=== PATIENT | male | born 1955 | race Caucasian/White ===

== ENCOUNTER 2018-10-13 13:36 | Inpatient (IN) | payer MEDICARE, MEDICAID ==
[~2018-10-13] VITALS: Ht 170.2 cm; Wt 60.8 kg
[2018-10-13 15:38] LABS: CHLORIDE 103 mEq/L (98-107)
[2018-10-13 15:39] LABS: BASOPHILS % 0.8 % (0.0-2.0); EOSINOPHILS % 1.7 % (0.0-5.0); HEMATOCRIT. 24.6 % (42.0-52.0); HEMOGLOBIN. 8.1 g/dL (14.0-18.0); LYMPHOCYTES % 17.2 % (20.0-50.0); MEAN CORPUSCULAR HEMOGLOBIN 27.3 pg (28.0-32.0); MEAN CORPUSCULAR VOLUME 82.6 fL (80.0-94.0); MEAN PLATELET VOLUME 10.9 fl (7.4-10.4); MONOCYTES % 7.9 % (2.0-8.0); NEUTROPHILS % 72.4 % (40.0-76.0); PLATELET 162 x1000/uL (130-400); RED BLOOD CELL COUNT 2.98 mill/uL (4.7-6.1); RED CELL DISTRIBUTION WIDTH 17.8 % (11.6-14.6)
[2018-10-13] MEDS ORDERED: CLONIDINE 0.2MG TABLET PO ONE (17:15)
[2018-10-13] MEDS ORDERED: CLONIDINE 0.1MG TABLET PO ONE (18:15)
[2018-10-13] MEDS ORDERED: HYDROCODONE/APAP 7.5/325MG 1 TAB TABLET PO PRN (22:30)
[2018-10-13] MEDS ORDERED: MORPHINE SULFATE 4 MG/ML CPJ (NOT FOR IM USE) IV PRN (22:30)
[2018-10-13] MEDS ORDERED: ONDANSETRON HCL 4MG/2ML INJ IV PRN (22:30)
[2018-10-13 23:00] VITALS: BP 174/77
[2018-10-14] MEDS ORDERED: CALC668T MT (02:43)
[2018-10-14] MEDS ORDERED: NORCO PO (02:43)
[2018-10-14] MEDS ORDERED: BENA40TA9 PO (02:43)
[2018-10-14] MEDS ORDERED: REN800 MT (02:43)
[2018-10-14] MEDS ORDERED: METO-539 PO (02:43)
[2018-10-14] MEDS ORDERED: BUSP5TAB3 PO (02:43)
[2018-10-14] MEDS ORDERED: CLON0.1T PO (02:43)
[2018-10-14] MEDS ORDERED: LANTUSUD SUBCUT (02:43)
[2018-10-14] MEDS ORDERED: ASPI-986 PO (02:43)
[2018-10-14] MEDS ORDERED: HYDR-4135 PO (02:43)
[2018-10-14] MEDS ORDERED: VALS160T2 PO (02:43)
[2018-10-14 07:59] VITALS: BP 118/32
[2018-10-14] MEDS: ENOXAPARIN 30MG/0.3ML SYR SUBCUT SCH (09:09)
[2018-10-14] MEDS: ASPIRIN 81MG EC TABLET PO SCH (09:09)
[2018-10-14] MEDS: FOLIC ACID 1MG TABLET PO SCH (09:10)
[2018-10-14 12:00] VITALS: BP_SYST 109; BP_SYST 116; BP_DIAS 48; BP_DIAS 57
[2018-10-14 16:00] VITALS: BP 130/36
[2018-10-14] MEDS: BLOOD SUGAR DIAGNOSTIC STRIP TEST SCH ×2 (18:18→21:30)
[2018-10-14 20:00] VITALS: BP 140/47
[2018-10-15] VITALS: BP 162/72
[2018-10-15 04:00] VITALS: BP 136/65
[2018-10-15] MEDS: BLOOD SUGAR DIAGNOSTIC STRIP TEST SCH ×4 (06:41→21:36)
[2018-10-15 06:48] LABS: BASOPHILS % 0.7 % (0.0-2.0); EOSINOPHILS % 0.5 % (0.0-5.0); HEMATOCRIT. 24.4 % (42.0-52.0); HEMOGLOBIN. 8.1 g/dL (14.0-18.0); LYMPHOCYTES % 12.2 % (20.0-50.0); MEAN CORPUSCULAR HEMOGLOBIN 27.5 pg (28.0-32.0); MEAN CORPUSCULAR VOLUME 82.8 fL (80.0-94.0); MEAN PLATELET VOLUME 10.3 fl (7.4-10.4); MONOCYTES % 7.2 % (2.0-8.0); NEUTROPHILS % 79.4 % (40.0-76.0); PLATELET 216 x1000/uL (130-400); RED BLOOD CELL COUNT 2.95 mill/uL (4.7-6.1); RED CELL DISTRIBUTION WIDTH 17.6 % (11.6-14.6)
[2018-10-15 08:00] VITALS: BP 153/67
[2018-10-15] MEDS: ASPIRIN 81MG EC TABLET PO SCH (08:36)
[2018-10-15] MEDS: FOLIC ACID 1MG TABLET PO SCH (08:37)
[2018-10-15] MEDS: ENOXAPARIN 30MG/0.3ML SYR SUBCUT SCH (09:52)
[2018-10-15 10:24] LABS: T4 FREE 0.97 ng/dL (0.76-1.46)
[2018-10-15 10:41] LABS: FOLIC ACID (FOLATE) SERUM >20 ng/mL ng/mL (>5.38)
[2018-10-15 10:53] LABS: VITAMIN B12 SERUM 1821 pg/mL (211-911)
[2018-10-15 12:00] VITALS: BP 129/64
[2018-10-15 16:00] VITALS: BP 129/67
[2018-10-15] MEDS ORDERED: CLONIDINE 0.1MG TABLET PO PRN (17:30)
[2018-10-15 20:00] VITALS: BP 113/28
[2018-10-15] MEDS: NYSTATIN 100,000 UNITS/GM CREAM 15GM TOP SCH (21:00)
[2018-10-15] MEDS: INSULIN GLARGINE UD 100 UNITS/ML SYR SUBCUT SCH (21:00)
[2018-10-16] VITALS: BP 132/65
[2018-10-16 04:00] VITALS: BP 111/34
[2018-10-16] MEDS: BLOOD SUGAR DIAGNOSTIC STRIP TEST SCH ×3 (06:45→20:43)
[2018-10-16 08:00] VITALS: BP 155/62
[2018-10-16] MEDS: ASPIRIN 81MG EC TABLET PO SCH (09:55)
[2018-10-16] MEDS: FOLIC ACID 1MG TABLET PO SCH (09:55)
[2018-10-16] MEDS: NYSTATIN 100,000 UNITS/GM CREAM 15GM TOP SCH ×2 (09:56→21:04)
[2018-10-16] MEDS: ENOXAPARIN 30MG/0.3ML SYR SUBCUT SCH (09:56)
[2018-10-16 12:00] VITALS: BP 141/74
[2018-10-16 16:00] VITALS: BP 163/76
[2018-10-16 20:00] VITALS: BP 147/99
[2018-10-16] MEDS: INSULIN GLARGINE UD 100 UNITS/ML SYR SUBCUT SCH (21:00)
[2018-10-17] VITALS (11 sets, daily range): BP systolic 97–189; BP diastolic 12–94
[2018-10-17] MEDS: BLOOD SUGAR DIAGNOSTIC STRIP TEST SCH ×4 (06:36→21:00)
[2018-10-17 07:40] LABS: BASOPHILS % 1.1 % (0.0-2.0); EOSINOPHILS % 0.8 % (0.0-5.0); HEMATOCRIT. 22.4 % (42.0-52.0); HEMOGLOBIN. 7.3 g/dL (14.0-18.0); LYMPHOCYTES % 13.2 % (20.0-50.0); MEAN CORPUSCULAR HEMOGLOBIN 28.1 pg (28.0-32.0); MEAN CORPUSCULAR VOLUME 85.8 fL (80.0-94.0); MEAN PLATELET VOLUME 9.8 fl (7.4-10.4); MONOCYTES % 7.3 % (2.0-8.0); NEUTROPHILS % 77.6 % (40.0-76.0); PLATELET 250 x1000/uL (130-400); RED BLOOD CELL COUNT 2.61 mill/uL (4.7-6.1); RED CELL DISTRIBUTION WIDTH 17.7 % (11.6-14.6)
[2018-10-17] MEDS: FOLIC ACID 1MG TABLET PO SCH (08:53)
[2018-10-17] MEDS: ASPIRIN 81MG EC TABLET PO SCH (08:53)
[2018-10-17] MEDS: ENOXAPARIN 30MG/0.3ML SYR SUBCUT SCH (08:54)
[2018-10-17] MEDS ORDERED: LOPERAMIDE HCL 2MG CAPSULE PO NR (12:00)
[2018-10-17] MEDS: NYSTATIN 100,000 UNITS/GM CREAM 15GM TOP SCH ×2 (13:54→21:30)
[2018-10-17] MEDS: INSULIN GLARGINE UD 100 UNITS/ML SYR SUBCUT SCH (21:00)
[2018-10-17] MEDS: EPOETIN ALFA 10000UNITS/ML VIAL SUBCUT SCH (22:03)
[2018-10-18 04:04] VITALS: BP 148/45
[2018-10-18] MEDS: BLOOD SUGAR DIAGNOSTIC STRIP TEST SCH ×4 (06:16→20:43)
[2018-10-18 06:41] LABS: INR 1.1; PROTHROMBIN TIME 11.5 sec (9.1-11.1)
[2018-10-18 06:57] LABS: BASOPHILS % 0.8 % (0.0-2.0); EOSINOPHILS % 1.1 % (0.0-5.0); HEMATOCRIT. 24.9 % (42.0-52.0); HEMOGLOBIN. 8.1 g/dL (14.0-18.0); LYMPHOCYTES % 11.7 % (20.0-50.0); MEAN PLATELET VOLUME 9.9 fl (7.4-10.4); MONOCYTES % 8.2 % (2.0-8.0); NEUTROPHILS % 78.2 % (40.0-76.0); PLATELET 265 x1000/uL (130-400); RED BLOOD CELL COUNT 2.89 mill/uL (4.7-6.1); RED CELL DISTRIBUTION WIDTH 17.4 % (11.6-14.6)
[2018-10-18] MEDS: ASPIRIN 81MG EC TABLET PO SCH (09:01)
[2018-10-18] MEDS: FOLIC ACID 1MG TABLET PO SCH (09:01)
[2018-10-18] MEDS: ENOXAPARIN 30MG/0.3ML SYR SUBCUT SCH (09:07)
[2018-10-18] MEDS: NYSTATIN 100,000 UNITS/GM CREAM 15GM TOP SCH ×2 (09:07→21:13)
[2018-10-18 12:15] VITALS: BP 100/38
[2018-10-18] MEDS ORDERED: LOPERAMIDE HCL 2MG CAPSULE PO SCH (13:30)
[2018-10-18 17:07] VITALS: BP 106/40
[2018-10-18 20:00] VITALS: BP 160/46
[2018-10-18] MEDS: INSULIN GLARGINE UD 100 UNITS/ML SYR SUBCUT SCH (21:14)
[2018-10-19] VITALS: BP 150/49
[2018-10-19 07:32] LABS: BASOPHILS % 1.4 % (0.0-2.0); EOSINOPHILS % 1.1 % (0.0-5.0); HEMATOCRIT. 26.2 % (42.0-52.0); HEMOGLOBIN. 8.5 g/dL (14.0-18.0); LYMPHOCYTES % 19.2 % (20.0-50.0); MEAN CORPUSCULAR HEMOGLOBIN 28.3 pg (28.0-32.0); MONOCYTES % 9.5 % (2.0-8.0); NEUTROPHILS % 68.8 % (40.0-76.0); PLATELET 249 x1000/uL (130-400); RED BLOOD CELL COUNT 3.02 mill/uL (4.7-6.1); RED CELL DISTRIBUTION WIDTH 18.4 % (11.6-14.6)
[2018-10-19] MEDS: BLOOD SUGAR DIAGNOSTIC STRIP TEST SCH ×4 (07:34→21:31)
[2018-10-19 08:00] VITALS: BP 137/72
[2018-10-19] MEDS: ASPIRIN 81MG EC TABLET PO SCH (10:49)
[2018-10-19] MEDS: FOLIC ACID 1MG TABLET PO SCH (10:49)
[2018-10-19] MEDS: NYSTATIN 100,000 UNITS/GM CREAM 15GM TOP SCH ×3 (10:50→21:29)
[2018-10-19] MEDS: ENOXAPARIN 30MG/0.3ML SYR SUBCUT SCH (10:50)
[2018-10-19 12:00] VITALS: BP 142/61
[2018-10-19 16:00] VITALS: BP 155/74
[2018-10-19] MEDS: INSULIN GLARGINE UD 100 UNITS/ML SYR SUBCUT SCH ×2 (21:31→21:39)
[2018-10-19 22:30] VITALS: BP 130/70
[2018-10-20] VITALS: BP 146/76
[2018-10-20 04:00] VITALS: BP 224/46
[2018-10-20] MEDS: BLOOD SUGAR DIAGNOSTIC STRIP TEST SCH ×4 (05:25→21:00)
[2018-10-20 08:00] VITALS: BP 150/52
[2018-10-20] MEDS: FOLIC ACID 1MG TABLET PO SCH (08:25)
[2018-10-20] MEDS: ASPIRIN 81MG EC TABLET PO SCH (08:25)
[2018-10-20] MEDS: ENOXAPARIN 30MG/0.3ML SYR SUBCUT SCH (08:25)
[2018-10-20] MEDS: NYSTATIN 100,000 UNITS/GM CREAM 15GM TOP SCH ×2 (08:29→21:00)
[2018-10-20 12:00] VITALS: BP 152/39
[2018-10-20 14:01] LABS: BASOPHILS % 2.1 % (0.0-2.0); EOSINOPHILS % 1.7 % (0.0-5.0); HEMATOCRIT. 26.6 % (42.0-52.0); HEMOGLOBIN. 8.6 g/dL (14.0-18.0); LYMPHOCYTES % 21.4 % (20.0-50.0); MEAN CORPUSCULAR HEMOGLOBIN 28.7 pg (28.0-32.0); MEAN CORPUSCULAR VOLUME 88.1 fL (80.0-94.0); MEAN PLATELET VOLUME 9.5 fl (7.4-10.4); MONOCYTES % 8.8 % (2.0-8.0); PLATELET 216 x1000/uL (130-400); RED BLOOD CELL COUNT 3.01 mill/uL (4.7-6.1); RED CELL DISTRIBUTION WIDTH 20.2 % (11.6-14.6)
[2018-10-20] MEDS: EPOETIN ALFA 10000UNITS/ML VIAL SUBCUT SCH (21:00)
[2018-10-20] MEDS: INSULIN GLARGINE UD 100 UNITS/ML SYR SUBCUT SCH (22:00)
[2018-10-20 23:53] VITALS: BP 115/53
[2018-10-21] MEDS: BLOOD SUGAR DIAGNOSTIC STRIP TEST SCH ×2 (07:09→12:07)
[2018-10-21 07:43] LABS: BASOPHILS % 1.4 % (0.0-2.0); EOSINOPHILS % 0.9 % (0.0-5.0); HEMATOCRIT. 23.3 % (42.0-52.0); HEMOGLOBIN. 7.6 g/dL (14.0-18.0); MEAN CORPUSCULAR HEMOGLOBIN 28.6 pg (28.0-32.0); MEAN CORPUSCULAR VOLUME 87.9 fL (80.0-94.0); MEAN PLATELET VOLUME 9.4 fl (7.4-10.4); MONOCYTES % 7.9 % (2.0-8.0); NEUTROPHILS % 73.8 % (40.0-76.0); PLATELET 206 x1000/uL (130-400); RED BLOOD CELL COUNT 2.65 mill/uL (4.7-6.1); RED CELL DISTRIBUTION WIDTH 20.4 % (11.6-14.6)
[2018-10-21] MEDS: FOLIC ACID 1MG TABLET PO SCH (08:08)
[2018-10-21] MEDS: ASPIRIN 81MG EC TABLET PO SCH (08:08)
[2018-10-21] MEDS: ENOXAPARIN 30MG/0.3ML SYR SUBCUT SCH (08:10)
[2018-10-21] MEDS: NYSTATIN 100,000 UNITS/GM CREAM 15GM TOP SCH (08:10)
== END 2018-10-21 14:15 | DRG 91 ==
LOC: ER 13:36 → 6WST 16:02 → EDBEDREQ 16:09 → ENRESERV 21:11
PROVIDERS: ADMIT Internal Medicine Nephrology; ATTEND Internal Medicine Nephrology
PROC: 5A1D70Z Performance of Urinary Filtration, Intermittent, Less than 6 Hours Per Day (ICD-10-PCS; 2018-10-15)
PROC: 4A00X4Z Measurement of Central Nervous Electrical Activity, External Approach (ICD-10-PCS; principal; 2018-10-16)
PROC: 30233N1 Transfusion of Nonautologous Red Blood Cells into Peripheral Vein, Percutaneous Approach (ICD-10-PCS; 2018-10-17)
PROC: 5A1D70Z Performance of Urinary Filtration, Intermittent, Less than 6 Hours Per Day (ICD-10-PCS; 2018-10-17)
PROC: 5A1D70Z Performance of Urinary Filtration, Intermittent, Less than 6 Hours Per Day (ICD-10-PCS; 2018-10-20)
DX: G92 Toxic encephalopathy (principal); N18.6 End stage renal disease; E43 Unspecified severe protein-calorie malnutrition; I12.0 Hypertensive chronic kidney disease with stage 5 chronic kidney disease or end stage renal disease; E87.70 Fluid overload, unspecified; M54.5 Low back pain; E03.9 Hypothyroidism, unspecified; E11.22 Type 2 diabetes mellitus with diabetic chronic kidney disease; G89.29 Other chronic pain; F03.90 Unspecified dementia, unspecified severity, without behavioral disturbance, psychotic disturbance, mood disturbance, and anxiety; K21.9 Gastro-esophageal reflux disease without esophagitis; M85.80 Other specified disorders of bone density and structure, unspecified site; R13.10 Dysphagia, unspecified; E05.90 Thyrotoxicosis, unspecified without thyrotoxic crisis or storm; Z96.653 Presence of artificial knee joint, bilateral; R26.9 Unspecified abnormalities of gait and mobility; E78.5 Hyperlipidemia, unspecified; D63.8 Anemia in other chronic diseases classified elsewhere; E11.319 Type 2 diabetes mellitus with unspecified diabetic retinopathy without macular edema; H54.7 Unspecified visual loss; Z86.73 Personal history of transient ischemic attack (TIA), and cerebral infarction without residual deficits; Z86.79 Personal history of other diseases of the circulatory system; Z91.19 Patient's noncompliance with other medical treatment and regimen; Z68.21 Body mass index [BMI] 21.0-21.9, adult; Z88.0 Allergy status to penicillin; Z99.2 Dependence on renal dialysis
CPT/HCPCS: 36415; 36430; 70551; 71045; 73502; 73560; 80048; 82140; 82270; 82607; 82746; 82962; 83036; 83520; 83880; 84134; 84439; 84443; 84481; 84484; 85384; 86850; 86900; 86920; 92610; 93005; 93970; 97162; 97166; 97530; 99285; A6261; J0885; J1650; J1815; J2405; P9016